=== PATIENT | female | born 2005 | race Caucasian/White ===

== ENCOUNTER → 2025-09-02 | Outpatient (CLI) | payer OTHER ==
[2025-09-07 16:08] LABS: FACTOR V LEIDEN FOR MEDINET NEGATIVE
== END ==
LOC: M LAB 17:01
PROVIDERS: ATTEND Student in an Organized Health Care Education/Training Program
DX: Z83.2 Family history of diseases of the blood and blood-forming organs and certain disorders involving the immune mechanism (principal)

== ENCOUNTER → 2025-09-03 | Outpatient (REF) | payer OTHER | LOC: M LAB REF 11:39 | PROVIDERS: ATTEND Physician Assistant | DX: B34.9 Viral infection, unspecified (principal) ==

== ENCOUNTER 2025-10-17 18:47 | Emergency (ER) | payer OTHER ==
[~2025-10-17] VITALS: Ht 160 cm; Wt 88.8 kg
[2025-10-17] MEDS: ACETAMINOPHEN 500 MG TAB PO ONE (19:32)
[2025-10-17] MEDS: NS (Normal Saline) 0.9% 1,000 ML IV ONE (20:00)
[2025-10-17 20:20] LABS: BASO # 0.0 10^3/uL (0.0-0.2); BASO % 0.1 % (0.0-1.0); EOS # 0.0 10^3/uL (0.0-0.5); EOS % 0.1 % (0.0-3.0); LYMPH # 0.2 10^3/uL (1.5-5.0); LYMPH % 2.9 % (24.0-44.0); MONO # 0.5 10^3/uL (0.0-0.8); MONO % 6.3 % (2.0-8.0); NEUTROPHILS # 7.6 10^3/uL (1.5-8.5); NEUTROPHILS % 90.2 % (36.0-66.0); PLATELET COUNT, AUTOMATED 309 10^3/uL (150-450)
[2025-10-17] MEDS: IBUPROFEN 600 MG TAB PO ONE (20:37)
[2025-10-17 20:44] LABS: CALCIUM LEVEL 8.7 MG/DL (8.5-10.1); CARBON DIOXIDE LEVEL 24 MMOL/L (20-31); CHLORIDE LEVEL 107 MMOL/L (98-107); CREATININE FOR GFR 0.67 MG/DL (0.55-1.30); GLOMERULAR FILTRATION RATE > 90.0 (>60); POTASSIUM SERUM 3.7 MMOL/L (3.5-5.1); SODIUM LEVEL 142 MMOL/L (136-145)
[2025-10-17 22:30] VITALS: BP 107/54
[2025-10-17 22:45] VITALS: O2SAT 98
[2025-10-17 22:47] VITALS: TEMP 100.4
== END 2025-10-17 23:19 | disposition home or self-care (01) ==
LOC: M ED 18:47
DX: J09.X2 Influenza due to identified novel influenza A virus with other respiratory manifestations (principal); R00.0 Tachycardia, unspecified